=== PATIENT | female | born 1950 | race African-American/Black ===

== ENCOUNTER → 2019-08-25 | Outpatient (CLI) | payer OTHER ==
[~2019-08-25] VITALS: Ht 157.5 cm; Wt 97.5 kg
[~2019-08-25] MED LIST: FOLIC ACID1 MG; LISINOPRIL10 MG; METFORMIN HCL500 M1 PO; METHOTREXATE 22.5 M1 PO; NEURONTIN300 MG PO; NORVASC2.5 MG; ULTRAM 50MG TAB50 MG PO; VITAMIN D400 UNIT
[2019-08-25 09:42] VITALS: BP 127/74
--- NOTE | 2019-08-25 10:05 | NUR ---
Pain Clinic Assessment: 1. History of Osteoarthritis: Not Applicable History of Rheumatoid Arthritis: Left Lower Extremity Right Lower Extremity 2. Height: 5 ft. 2 in. 157.5 cm. Weight: 215.0 lb. oz. 97.524 kg. Patient's BMI: 39.3 3. Vital Signs: BP: 127/74 Pulse: 76 Resp: 16 Temp: 02 Sat: 100 ECG Mon: 4. Pain Intensity: 7 5. Fall Risk: Dizziness: N Needs help standing or walking: N Fallen in the last 3 months: N Fall risk comments: 6. Patient on Blood Thinner: None 7. History of Hypertension: Y 8. Opioid Therapy greater than 6 weeks: N Opiate Contract Signed: 9. Risk Assessment Tool Provided: 10. Functional Assessment Tool: 11. Recreational Drug Use: Never Drug Type: Tobacco Use: Former Smoker Tobacco Type: Cigarettes Amount or Packs/day: How Many Years: Alcohol Use: Yes Frequency: Special Occasions Quant: 1-2
--- NOTE | 2019-09-02 12:06 | HPC ---
[facility] [place] [address] PAIN MANAGEMENT CONSULTATION Name: DANIEL PENA Pj Room #: REG [facility] Christy#: [id number] Admission: 08/25/19 Attend Phys: David Palma DO Discharge: Date of : 46 Report #: [id number] THIS REPORT FOR: //name// CC: Jessica Helton MD DATE OF SERVICE: 08/25/2019 REFERRING PHYSICIAN: Pop Helton M.D. CHIEF COMPLAINT: Right lateral thigh pain. HISTORY OF PRESENT ILLNESS: As you know, the patient is a morbidly obese 68-year-old female referred to our service to discuss treatment options for suspected neuropathy. The patient states her pain has been present since July 2009. The patient indicates the majority of her symptoms are on the right side, radiating only along the lateral aspect of the thigh to just above the knee. There are no symptoms radiating below the knee on the right side and no symptoms on the left. She indicates she does experience bilateral hip pain, but this is related more to weightbearing. The patient states that she has trialed conservative treatment options, sought evaluation through her primary care physician who had the patient undergo x-ray of the right knee, which showed moderate degenerative changes of the right knee. No osseous abnormalities. Also, noted to be on the left knee as well. She has been treated for rheumatoid arthritis for an extended period of time and has been on and off different medications and feels this is fairly well controlled with methotrexate. There was concern the patient was experiencing a lumbar radiculopathy and the patient was referred for MRI. Findings of the MRI show marked osteoarthritic changes of the facet joints, but no central canal or neuroforaminal stenosis. The patient was subsequently referred to our clinic to discuss options for treatment for right lateral thigh neuropathy. The patient indicates pain is periodic, describes pain as sharp, stabbing, numbness and tingling. Places current pain score at 7/10, daily average is 7/10, worst pain has been is 10/10. The patient says walking exacerbate symptoms, nothing tends to improve pain. She has been referred to our service to discuss options for treatment. PAST MEDICAL HISTORY: 1. Diabetes mellitus type 2. 2. Anemia. 3. Hypertension. 4. Degenerative joint disease. 5. Rheumatoid arthritis. 6. Osteoarthritis. [address] [address] PAIN MANAGEMENT CONSULTATION Name: PATRICK PENAJOVITA Oliva [facility] [id number] Admission: 08/25/19 Attend Phys: David Palma DO Discharge: Date of : 46 Report #: [id number] 7. Morbid obesity. PAST SURGICAL HISTORY: None. SOCIAL HISTORY: The patient denies tobacco, IV or illicit drug use. Admits to occasional alcoholic beverage. 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 She is working, not receiving workmen's compensation or is trying to obtain discrete benefits. She is not in litigation in regards to pain. She is unaccompanied today. REVIEW OF SYSTEMS: Positive for wearing corrective eyewear, frequent urination, nocturia, non-insulin dependent diabetes, excessive thirst and urination, heat and cold intolerance, bleeding and bruising tendencies, anemia and right lateral thigh pain. All other review of systems negative per 12-point review of systems other than those listed in history of present illness. PAIN IMPACT SCORE: 47/70, indicating moderate interference of daily activities secondary to pain. ALLERGIES: No known drug allergies. CURRENT MEDICATIONS: Lisinopril 10 mg per day, metformin 500 mg b.i.d., amlodipine 2.5 mg once a day, cholecalciferol 400 units per day, folic acid 1 mg per day, methotrexate 2.5 mg 8 tablets as directed. IMAGING: X-ray of the lumbar spine shows no central canal or neuroforaminal stenosis. There is marked facet arthrosis at the L4-L5 and L5-S1 level. PHYSICAL EXAMINATION: VITAL SIGNS: Blood pressure 127/74, pulse 76, respiratory rate 16 and unlabored. The patient is 100% on room air. Height 5 feet 2 inches tall, weight 215 pounds and BMI calculated 39.3. GENERAL: Well-developed, well-nourished, well-hydrated exogenously obese 68-year-old female appearing stated age, placing pain score today at 7/10. HEENT: Normocephalic, atraumatic. Pupils equal, round, reactive to light. Extraocular muscles are intact. NEUROLOGIC: Speech fluent. The patient deemed a fair historian. LUNGS: Clear, no wheezes, rhonchi or rales. CARDIOVASCULAR: Regular. No appreciable gallop, no rub. ABDOMEN: Soft, obese, normoactive bowel sounds. EXTREMITIES: Show no clubbing, no cyanosis, and no edema. MUSCULOSKELETAL: The patient has equal and symmetrical lower extremity strength 5/5, intact to light touch from L1 through S2 dermatomes. Seated straight leg raising negative. Supine straight leg raising negative. Wilton's test negative. Modified Gaenslen's positive for axial low back pain. Ankle clonus negative. Babinski is negative. There is tactile tenderness to palpation across the [facility] [address] [place] [address] PAIN MANAGEMENT CONSULTATION Name: DANIEL PENA Room #: REG DEMETRA Harrison#: [id number] Admission: 08/25/19 Attend Phys: David Palma DO Discharge: Date of : 46 Report #: [id number] lateral aspect of the right leg, indicative of meralgia paresthetica. Deep palpation of the area of the iliac crest causes intensification of pain. Seated straight leg raising does not appear to be positive. Supine straight leg raising is negative. Gait mildly antalgic, favoring right lower extremity. ASSESSMENT: 1. Possible meralgia paresthetica. 2. Possible lumbar radiculopathy. 3. Severe facet arthropathy of the lumbar spine. 4. Chronic intractable pain. PLAN: 1. Based on today's physical exam and history the patient has provided as well as the distribution of her symptoms and the description she uses, the likely source of the patient's pain is meralgia paresthetica involving the right lateral thigh. There is a possibility that she has changes in the lumbar spine, though the patient does not have definitive imaging, so I cannot comment further on this issue. Does not appear by physical exam that her symptoms are related to a lumbar radiculopathy given the lack of positive seated or supine straight leg raising. The distribution does appear to be meralgia paresthetica in its presentation. We discussed with the patient treatment options for meralgia paresthetica. We discussed physical therapy, stretching exercises, core strengthening and a concerted effort at weight loss as well as utilizing less tight clothing to reduce the pressure across the nerves as they exit the pelvic area. We discussed medication management utilizing neuropathic pain medications. We discussed surgical decompressions if necessary. We also discussed our concerns about the fact that some of the symptoms may be coming from the lumbar spine and further imaging might be necessary. At present, the patient wishes to treat conservatively. 2. The patient will be started on gabapentin 300 mg dose. She will begin 1 tab p.o. at bedtime for 7 nights, then 2 tabs p.o. at bedtime for 7 nights, then 3 tabs p.o. at bedtime for 7 nights, then 1 tab p.o. q.a.m. and 3 tabs p.o. at bedtime. The patient was given #120 tablets. Advised if she experiences side effects of sleepiness, disorientation, confusion, mental slowing, she is to reduce to the dose prior, continue the dose for another 7 days, then reattempt escalation assuming no improvement in symptoms. If the patient notes improvement in symptoms, stabilize at that dose, no further escalation. 3. We did discuss with the patient that if her symptoms do not improve with more conservative treatment, we could look to more aggressive injection therapies or surgical decompression, though I believe ultimately the patient will need to undergo MRI of the lumbar spine for further evaluation. We have advised the patient if this is the case, we will have her return to discuss that option with us. If this is necessary, we will have the primary write for an MRI of the lumbar spine for further evaluation and determine if surgical options from a lumbar standpoint might be necessary. 4. We wish to thank the referring physician for the opportunity to see this [address] [address] PAIN MANAGEMENT CONSULTATION Name: DANIEL PENA Room #: REG [facility] Christy#: [id number] Admission: 08/25/19 Attend Phys: David Palma DO Discharge: Date of : 46 Report #: [id number] patient in consultation. We will keep you apprised of her response to treatment as we address suspected meralgia paresthetica and possible lumbar radiculopathy. Again, we wish to thank you for the opportunity to see this patient in consultation. <ELECTRONICALLY SIGNED> By: David Palma DO 09/02/19 [id number] David Palma DO /nt
== END ==
LOC: PAIN 06:37
DX: M79.651 Pain in right thigh (principal); E11.9 Type 2 diabetes mellitus without complications; I10 Essential (primary) hypertension; M06.9 Rheumatoid arthritis, unspecified; G89.4 Chronic pain syndrome; M12.88 Other specific arthropathies, not elsewhere classified, other specified site

== ENCOUNTER 2020-11-29 18:11 | Emergency (ER) | payer OTHER ==
[~2020-11-29] VITALS: Ht 157.5 cm; Wt 95.3 kg
[2020-11-29] MEDS ORDERED: TYLENOL325 M1 PO (20:10)
[2020-11-29] MEDS ORDERED: MEDROL DOSPAK21 TA1 PO (20:10)
[2020-11-29 20:22] VITALS: BP 144/84
[2020-11-29] MEDS ORDERED: MEDROLDOSEPACK PO ×2 (20:38→20:42)
== END 2020-11-29 20:22 | disposition home or self-care (01) ==
LOC: ER 18:11
DX: M54.32 Sciatica, left side (principal); M79.605 Pain in left leg; I10 Essential (primary) hypertension; E11.9 Type 2 diabetes mellitus without complications; Z90.89 Acquired absence of other organs; Z79.899 Other long term (current) drug therapy; Z87.891 Personal history of nicotine dependence